=== PATIENT | female | born 1955 | race Caucasian/White ===

== ENCOUNTER 2017-04-05 16:29 | Inpatient (IN) | payer OTHER ==
[~2017-04-05] VITALS: Ht 167.6 cm; Wt 116.5 kg
[~2017-04-05 16:29] MED LIST: ATARAX,VISTARIL25 MG PO; ERGOCALCIF50000 UNIT PO; LISINOPRIL10 MG PO; MAGNESIUM OXID500 MG PO; OMEPRAZOLE40 M1 PO; PREDNISONE10 MG PO; SYNTHROID100 MCG PO; VENTOLIN HFA18 GM IH; VITAMIN B-123000 MCG SL
[2017-04-05 18:21] LABS: HEMATOCRIT 34.9 % (36.0-46.0); HEMOGLOBIN 11.2 G/DL (11.9-15.5); MCH 29.5 PG (29.0-34.0); MCHC 32.1 G/DL (30.0-36.0); MCV 91.8 FL (83-99); PLATELET COUNT 253 K/uL (156-360); RBC DIS.WIDTH-CV 16.3 % (11.8-14.6); RBC DIS.WIDTH-SD 54.6 % (39-53); WHITE BLOOD COUNT 14.1 K/uL (4.1-10.2)
[2017-04-05 18:29] LABS: CHLORIDE 104 mEq/L (99-109); POTASSIUM 5.2 mEq/L (3.7-5.4); SODIUM 141 mEq/L (136-147)
[2017-04-05 18:30] LABS: ALBUMIN 3.4 g/dL (3.2-4.8); MAGNESIUM 1.8 mg/dL (1.3-2.7)
[2017-04-05 18:32] LABS: GLUCOSE 109 mg/dL (70-99); TOTAL PROTEIN 6.5 g/dL (6.4-8.3)
[2017-04-05 18:34] LABS: TOTAL BILIRUBIN 0.8 mg/dL (0.0-1.0)
[2017-04-05 18:35] LABS: ALKALINE PHOSPHATASE 60 IU/L (3-129); SERUM ETHYL ALCOHOL < 10 mg/dL
[2017-04-05 18:36] LABS: CREATININE 1.8 mg/dL (0.6-1.3); GFR ESTIMATE (CALCULATED) 30 mL/min/
[2017-04-05 18:37] LABS: AST (GOT) 17 IU/L (2-34); UREA NITROGEN (BUN) 37 mg/dL (9-23)
[2017-04-05 18:39] LABS: ALT (GPT) 28 IU/L (3-49); CREATINE KINASE 205 IU/L (1-294)
[2017-04-05] MEDS ORDERED: BACLOFEN10 MG PO (18:47)
[2017-04-05] MEDS ORDERED: MECLIZINE HCL25 MG PO (18:47)
[2017-04-05] MEDS ORDERED: PRESERVISION A1 EAC2 PO (18:47)
[2017-04-05] MEDS ORDERED: K-DUR20 MEQ PO (18:47)
[2017-04-05 18:48] LABS: APPEARANCE SL.HAZY ((CLEAR)); BILIRUBIN NEGATIVE; BLOOD NEGATIVE; COLOR YELLOW ((YELLOW)); GLUCOSE (STRIP) NEGATIVE; KETONES 5; LEUKOCYTES TRACE; NITRITE NEGATIVE; PROTEIN (STRIP) 30; SPECIFIC GRAVITY 1.023 (1.000-1.030)
[2017-04-05] MEDS ORDERED: FUROSEMIDE20 MG PO (18:48)
[2017-04-05 18:59] LABS: BACTERIA RARE /HPF; EPITHELIAL CELLS 1+ /HPF; HYALINE CASTS 30-40 /LPF; MUCUS TRACE /LPF; RED BLOOD CELLS 0-5 /HPF (0-5); WHITE BLOOD CELLS 0-5 /HPF (0-5)
[2017-04-05 19:12] LABS: AMPHETAMINE NEGATIVE (500 ng/mL); BARBITURATES NEGATIVE (200 ng/mL); BENZODIAZEPINES NEGATIVE (150 ng/mL); BUPRENORPHINE NEGATIVE (10 ng/mL); COCAINE NEGATIVE (150 ng/mL); METHADONE NEGATIVE (200 ng/mL); METHAMPHETAMINE NEGATIVE (500 ng/mL); OPIATES (MORPHINE) NEGATIVE (100 ng/mL); OXYCODONE NEGATIVE (100 ng/mL); PHENCYCLIDINE NEGATIVE (25 ng/mL); PROPOXYPHENE NEGATIVE (300 ng/mL); THC CANNABINOIDS PRESUMPTIVE POSITIVE (50 ng/mL); TRICYCLIC ANTIDEPRESSANTS NEGATIVE (300 ng/mL)
[2017-04-06 00:47] LABS: BASE EXCESS -0.4 mEq/L (-3 to +3); BICARBONATE 24.8 mEq/L (22-26); CARBOXY HGB 2.9 % (0-5); COMMENTS - BLOOD GASES C+A+; DEVICE NC; METHEMOGLOBIN 1.1 % (0-1.5); O2 FLOW 4 L/MIN; PCO2 42 mm Hg (35-45); PO2 85 mm Hg (80-100); SITE RR; pH 7.38 (7.35-7.45)
[2017-04-06 08:04] LABS: FOLIC ACID (FOLATE) 15.9 NG/ML (5.0-22.0)
[2017-04-06 14:49] VITALS: BP 119/64
[2017-04-06 16:44] VITALS: BP 127/79
[2017-04-06 19:49] VITALS: BP 96/62
[2017-04-06 23:08] VITALS: BP 101/59
[2017-04-07 04:54] VITALS: BP 118/63
[2017-04-07 06:00] LABS: CHLORIDE 108 MEQ/L (99-109); SODIUM 141 MEQ/L (136-147); UREA NITROGEN (BUN) 27 mg/dL (9-23)
[2017-04-07 06:10] LABS: CREATININE 1.2 MG/DL (0.6-1.3); GFR ESTIMATE (CALCULATED) 49 mL/min/; GLUCOSE 210 mg/dL (70-99); POTASSIUM 3.9 MEQ/L (3.7-5.4)
[2017-04-07 07:09] LABS: HEMATOCRIT 31.7 % (36.0-46.0); HEMOGLOBIN 10.1 G/DL (11.9-15.5); MCH 29.4 PG (29.0-34.0); MCHC 31.9 G/DL (30.0-36.0); MCV 92.2 FL (83-99); PLATELET COUNT 249 K/uL (156-360); RBC DIS.WIDTH-CV 15.8 % (11.8-14.6); RBC DIS.WIDTH-SD 53.4 % (39-53); RED BLOOD COUNT 3.44 M/uL (3.80-5.20); WHITE BLOOD COUNT 16.9 K/uL (4.1-10.2)
[2017-04-07 08:02] VITALS: BP 133/74
[2017-04-07 13:04] VITALS: BP 135/67
[2017-04-07 16:07] VITALS: BP 158/81
[2017-04-07 19:22] VITALS: BP 138/74
[2017-04-07 23:16] VITALS: BP 147/77
[2017-04-08 03:16] VITALS: BP 144/83
[2017-04-08 06:33] LABS: CHLORIDE 106 MEQ/L (99-109); CREATININE 1.6 MG/DL (0.6-1.3); GFR ESTIMATE (CALCULATED) 35 mL/min/; GLUCOSE 115 mg/dL (70-99); SODIUM 142 MEQ/L (136-147); UREA NITROGEN (BUN) 28 mg/dL (9-23)
[2017-04-08 08:34] VITALS: BP 167/88
[2017-04-08 11:26] VITALS: BP 145/81
[2017-04-08 16:05] VITALS: BP 151/82
[2017-04-08 19:58] VITALS: BP 165/77
[2017-04-08 23:44] VITALS: BP 158/88
[2017-04-09 05:18] VITALS: BP 136/92
[2017-04-09 07:10] LABS: CHLORIDE 106 MEQ/L (99-109); CREATININE 1.4 MG/DL (0.6-1.3); GFR ESTIMATE (CALCULATED) 41 mL/min/; SODIUM 142 MEQ/L (136-147); UREA NITROGEN (BUN) 30 mg/dL (9-23)
[2017-04-09 07:18] LABS: GLUCOSE 84 mg/dL (70-99)
[2017-04-09 08:00] VITALS: BP 135/70
[2017-04-09 12:08] VITALS: BP 121/67
[2017-04-09 15:54] VITALS: BP 126/68
[2017-04-09 20:02] VITALS: BP 133/80
[2017-04-09 22:57] VITALS: BP 132/76
[2017-04-10 05:32] VITALS: BP 125/79
[2017-04-10 07:59] LABS: BASOPHIL (%) 0.3 % (0-1); EOSINOPHIL (%) 2.2 % (0-5); EOSINOPHIL COUNT 0.2 K/uL (0-0.3); HEMOGLOBIN 9.7 G/DL (11.9-15.5); IMMATURE GRANULOCYTE (%) 2.3 % (0.0-0.7); LYMPHOCYTE (%) 22.3 % (15-42); LYMPHOCYTE COUNT 2.3 K/uL (1.0-2.8); MCHC 31.3 G/DL (30.0-36.0); MCV 92.5 FL (83-99); MONOCYTE (%) 8.9 % (3-12); MONOCYTE COUNT 0.9 K/uL (0-0.8); NEUTROPHIL COUNT 6.6 K/uL (1.8-6.4); NRBC (%) 0.2 /100 WBC (0-0); PLATELET COUNT 235 K/uL (156-360); RBC DIS.WIDTH-CV 15.9 % (11.8-14.6); RED BLOOD COUNT 3.35 M/uL (3.80-5.20); WHITE BLOOD COUNT 10.3 K/uL (4.1-10.2)
[2017-04-10 08:10] VITALS: BP 122/69
[2017-04-10 08:37] LABS: CHLORIDE 105 MEQ/L (99-109); GFR ESTIMATE (CALCULATED) > 59 mL/min/; GLUCOSE 75 mg/dL (70-99); SODIUM 139 MEQ/L (136-147); UREA NITROGEN (BUN) 24 mg/dL (9-23)
[2017-04-10 12:21] VITALS: BP 117/57
[2017-04-10 16:09] VITALS: BP 128/81
[2017-04-10 19:46] VITALS: BP 127/60
[2017-04-10 23:46] VITALS: BP 111/60
[2017-04-11 03:51] VITALS: BP 118/61
[2017-04-11 05:33] LABS: BASOPHIL (%) 0.1 % (0-1); EOSINOPHIL (%) 2.7 % (0-5); EOSINOPHIL COUNT 0.3 K/uL (0-0.3); HEMATOCRIT 31.1 % (36.0-46.0); HEMOGLOBIN 9.9 G/DL (11.9-15.5); IMMATURE GRANULOCYTE (%) 2.4 % (0.0-0.7); LYMPHOCYTE (%) 17.2 % (15-42); LYMPHOCYTE COUNT 1.8 K/uL (1.0-2.8); MCH 29.5 PG (29.0-34.0); MCHC 31.8 G/DL (30.0-36.0); MCV 92.6 FL (83-99); MONOCYTE (%) 6.8 % (3-12); MONOCYTE COUNT 0.7 K/uL (0-0.8); NEUTROPHIL (%) 70.8 % (45-76); NEUTROPHIL COUNT 7.5 K/uL (1.8-6.4); NRBC (%) 0.2 /100 WBC (0-0); PLATELET COUNT 223 K/uL (156-360); RBC DIS.WIDTH-CV 16.1 % (11.8-14.6); RBC DIS.WIDTH-SD 54.1 % (39-53); RED BLOOD COUNT 3.36 M/uL (3.80-5.20); WHITE BLOOD COUNT 10.5 K/uL (4.1-10.2)
[2017-04-11 06:08] LABS: CHLORIDE 100 MEQ/L (99-109); CREATININE 1.2 MG/DL (0.6-1.3); GFR ESTIMATE (CALCULATED) 49 mL/min/; POTASSIUM 4.1 MEQ/L (3.7-5.4); SODIUM 135 MEQ/L (136-147); UREA NITROGEN (BUN) 18 mg/dL (9-23)
[2017-04-11 06:10] LABS: GLUCOSE 100 mg/dL (70-99)
[2017-04-11 07:30] LABS: POTASSIUM 3.8 MEQ/L (3.7-5.4)
[2017-04-11 08:21] VITALS: BP 114/58
[2017-04-11 12:01] VITALS: BP 118/55
[2017-04-11] MEDS ORDERED: NICOTINE PATCH1 EAC1 TD (13:39)
[2017-04-11] MEDS ORDERED: NYSTATIN15 GM TP (13:49)
[2017-04-11] MEDS ORDERED: ATROVENT 00.5 MG/2.5 AEROSOL (13:52)
[2017-04-11] MEDS ORDERED: ENDOCET 5-3251 EACH PO (13:54)
[2017-04-11 16:48] VITALS: BP 113/59
[2017-04-11 18:25] VITALS: BP 125/75
== END 2017-04-11 19:10 | DRG 183 ==
LOC: EME 16:29 → EDOF 23:20 → 3EAST 23:20 → ENRESERV 23:23 → 3EAST 04-06 13:44
PROVIDERS: Emergency Medicine; Hospitalist; Internal Medicine; Student in an Organized Health Care Education/Training Program
PROC: 5A09357 Assistance with Respiratory Ventilation, Less than 24 Consecutive Hours, Continuous Positive Airway Pressure (ICD-10-PCS; principal; 2017-04-06)
DX: S22.43XA Multiple fractures of ribs, bilateral, initial encounter for closed fracture (principal); J44.1 Chronic obstructive pulmonary disease with (acute) exacerbation; J96.01 Acute respiratory failure with hypoxia; N17.9 Acute kidney failure, unspecified; S40.012A Contusion of left shoulder, initial encounter; W19.XXXA Unspecified fall, initial encounter; Y92.009 Unspecified place in unspecified non-institutional (private) residence as the place of occurrence of the external cause; I12.9 Hypertensive chronic kidney disease with stage 1 through stage 4 chronic kidney disease, or unspecified chronic kidney disease; N18.3 Chronic kidney disease, stage 3 (moderate); E11.22 Type 2 diabetes mellitus with diabetic chronic kidney disease; N39.0 Urinary tract infection, site not specified; R62.7 Adult failure to thrive; E66.9 Obesity, unspecified; Z68.41 Body mass index [BMI] 40.0-44.9, adult; G47.33 Obstructive sleep apnea (adult) (pediatric); R00.0 Tachycardia, unspecified; M48.56XA Collapsed vertebra, not elsewhere classified, lumbar region, initial encounter for fracture; M48.54XA Collapsed vertebra, not elsewhere classified, thoracic region, initial encounter for fracture; R29.6 Repeated falls; R40.0 Somnolence; R44.2 Other hallucinations; T42.8X1A Poisoning by antiparkinsonism drugs and other central muscle-tone depressants, accidental (unintentional), initial encounter; T40.7X1A Poisoning by cannabis (derivatives), accidental (unintentional), initial encounter; M19.012 Primary osteoarthritis, left shoulder; M54.12 Radiculopathy, cervical region; E03.9 Hypothyroidism, unspecified; M35.3 Polymyalgia rheumatica; J98.11 Atelectasis; F17.210 Nicotine dependence, cigarettes, uncomplicated; K21.9 Gastro-esophageal reflux disease without esophagitis; F12.10 Cannabis abuse, uncomplicated; D72.829 Elevated white blood cell count, unspecified; T38.0X5A Adverse effect of glucocorticoids and synthetic analogues, initial encounter; Z75.1 Person awaiting admission to adequate facility elsewhere; Z82.49 Family history of ischemic heart disease and other diseases of the circulatory system; Z99.81 Dependence on supplemental oxygen
CPT/HCPCS: 36600; 70450; 71046; 71250; 72125; 73030; 74176; 80048; 80053; 81003; 82306; 82550; 82607; 82746; 82803; 82948; 83605; 83735; 84443; 84999; 85025; 85027; 93005; 94640; 94640 76; 94660; 94760; 94799; 97530 GP; 99202; 99281; 99285; G0480; J0456; J0696; J1644; J1815; J2270; J2920; J7030; J7040; S0028

== ENCOUNTER 2017-10-15 17:09 | Inpatient (IN) | payer OTHER ==
[~2017-10-15] VITALS: Ht 167.6 cm; Wt 113.6 kg
[~2017-10-15 17:09] MED LIST changes: +ATROVENT 00.5 MG/2.5 AEROSOL; +BACLOFEN10 MG PO; +ENDOCET 5-3251 EACH PO; +FUROSEMIDE40 MG PO; +K-DUR20 MEQ PO; +MECLIZINE HCL25 MG PO; +NICOTINE PATCH1 EAC1 TD; +NYSTATIN15 GM TP; +PRESERVISION A1 EAC2 PO
[2017-10-15 18:28] LABS: HEMATOCRIT 35.1 % (36.0-46.0); HEMOGLOBIN 11.4 G/DL (11.9-15.5); MCH 28.6 PG (29.0-34.0); MCHC 32.5 G/DL (30.0-36.0); PLATELET COUNT 315 K/uL (156-360); RBC DIS.WIDTH-CV 17.9 % (11.8-14.6); RBC DIS.WIDTH-SD 57.3 % (39-53); RED BLOOD COUNT 3.99 M/uL (3.80-5.20); WHITE BLOOD COUNT 14.6 K/uL (4.1-10.2)
[2017-10-15 18:38] LABS: CHLORIDE 103 mEq/L (99-109); POTASSIUM 3.9 mEq/L (3.7-5.4); SODIUM 144 mEq/L (136-147)
[2017-10-15 18:39] LABS: GLUCOSE 115 mg/dL (70-99)
[2017-10-15 18:43] LABS: CREATININE 1.2 mg/dL (0.6-1.3); GFR ESTIMATE (CALCULATED) 48 mL/min/
[2017-10-15 18:44] LABS: UREA NITROGEN (BUN) 22 mg/dL (9-23)
[2017-10-15 18:50] LABS: TROP-I INTERPRETATION NEGATIVE; TROPONIN-I 0.02 ng/mL (0.0-0.30)
[2017-10-15 19:30] LABS: COMMENTS - BLOOD GASES C+; O2 FLOW 2 L/MIN; SITE LR
[2017-10-15 19:31] LABS: CARBOXY HGB 1.8 % (0-5); DEVICE NC; PCO2 47 mm Hg (35-45); PO2 103 mm Hg (80-100); TOTAL RESP RATE 19 resp/min; pH 7.42 (7.35-7.45)
[2017-10-15 19:32] LABS: BICARBONATE 30.5 mEq/L (22-26)
[2017-10-15 19:34] LABS: BASE EXCESS 5.1 mEq/L (-3 to +3)
[2017-10-15 20:49] LABS: INTER. NORMALIZED RATIO 1.1
[2017-10-15] MEDS ORDERED: VENTOLIN HFA18 GM IH (23:16)
[2017-10-15] MEDS ORDERED: BACLOFEN10 MG PO ×2 (23:17)
[2017-10-15] MEDS ORDERED: HYDROCORTISONE30 G2 TP (23:17)
[2017-10-15] MEDS ORDERED: OXYCODONE HCL10 MG PO (23:17)
[2017-10-15] MEDS ORDERED: PREDNISONE10 MG PO (23:18)
[2017-10-16 01:24] LABS: TROP-I INTERPRETATION NEGATIVE; TROPONIN-I 0.02 ng/mL (0.0-0.30)
[2017-10-16 01:40] VITALS: BP 137/83
[2017-10-16 05:08] VITALS: BP 134/81
[2017-10-16 05:45] LABS: MCH 27.4 PG (29.0-34.0); MCHC 30.6 G/DL (30.0-36.0); MCV 89.8 FL (83-99); PLATELET COUNT 323 K/uL (156-360); RBC DIS.WIDTH-SD 59.3 % (39-53); RED BLOOD COUNT 4.01 M/uL (3.80-5.20); WHITE BLOOD COUNT 12.1 K/uL (4.1-10.2)
[2017-10-16 05:59] LABS: TROP-I INTERPRETATION NEGATIVE; TROPONIN-I 0.02 ng/mL (0.0-0.30)
[2017-10-16 07:10] VITALS: BP 114/82
[2017-10-16 09:56] LABS: ALBUMIN 3.6 g/dL (3.2-4.8); CHLORIDE 98 mEq/L (99-109); POTASSIUM 4.3 mEq/L (3.7-5.4); SODIUM 143 mEq/L (136-147)
[2017-10-16 09:59] LABS: GLUCOSE 160 mg/dL (70-99); TOTAL PROTEIN 6.7 g/dL (6.4-8.3)
[2017-10-16 10:01] LABS: TOTAL BILIRUBIN 0.8 mg/dL (0.0-1.0)
[2017-10-16 10:02] LABS: ALKALINE PHOSPHATASE 114 IU/L (3-129); CREATININE 1.3 mg/dL (0.6-1.3); GFR ESTIMATE (CALCULATED) 44 mL/min/
[2017-10-16 10:03] LABS: UREA NITROGEN (BUN) 23 mg/dL (9-23)
[2017-10-16 10:04] LABS: AST (GOT) 25 IU/L (2-34)
[2017-10-16 10:05] LABS: ALT (GPT) 45 IU/L (3-49)
[2017-10-16 15:35] VITALS: BP 144/77
[2017-10-16 16:28] LABS: APPEARANCE CLEAR ((CLEAR)); BILIRUBIN NEGATIVE; BLOOD NEGATIVE; COLOR STRAW ((YELLOW)); GLUCOSE (STRIP) NEGATIVE; KETONES NEGATIVE; LEUKOCYTES NEGATIVE; NITRITE NEGATIVE; PROTEIN (STRIP) NEGATIVE; SPECIFIC GRAVITY 1.011 (1.000-1.030); UCUL ADDED? NO; UROBILINOGEN 0.2 MG/DL (0.2-1.0)
[2017-10-16 20:00] VITALS: BP 140/84
[2017-10-16 21:15] VITALS: BP 132/64
[2017-10-17] VITALS (7 sets, daily range): BP systolic 118–137; BP diastolic 58–76
[2017-10-18 04:51] VITALS: BP 127/60
[2017-10-18 06:02] LABS: BASOPHIL (%) 0.1 % (0-1); EOSINOPHIL (%) 0 % (0-5); HEMATOCRIT 31.3 % (36.0-46.0); HEMOGLOBIN 9.8 G/DL (11.9-15.5); IMMATURE GRANULOCYTE (%) 0.9 % (0.0-0.7); LYMPHOCYTE (%) 4.3 % (15-42); LYMPHOCYTE COUNT 0.6 K/uL (1.0-2.8); MCH 27.8 PG (29.0-34.0); MCHC 31.3 G/DL (30.0-36.0); MCV 88.9 FL (83-99); MONOCYTE (%) 3.9 % (3-12); MONOCYTE COUNT 0.5 K/uL (0-0.8); NEUTROPHIL (%) 90.8 % (45-76); NEUTROPHIL COUNT 12.5 K/uL (1.8-6.4); PLATELET COUNT 297 K/uL (156-360); RBC DIS.WIDTH-SD 58.7 % (39-53); RED BLOOD COUNT 3.52 M/uL (3.80-5.20); WHITE BLOOD COUNT 13.8 K/uL (4.1-10.2)
[2017-10-18 06:25] LABS: ALBUMIN 2.8 G/DL (3.2-4.8); ALKALINE PHOSPHATASE 88 IU/L (3-129); ALT (GPT) 36 IU/L (3-49); AST (GOT) 19 IU/L (2-34); CHLORIDE 98 MEQ/L (99-109); CREATININE 1.3 MG/DL (0.6-1.3); GFR ESTIMATE (CALCULATED) 44 mL/min/; GLUCOSE 213 mg/dL (70-99); POTASSIUM 4.3 MEQ/L (3.7-5.4); SODIUM 139 MEQ/L (136-147); TOTAL BILIRUBIN 0.3 MG/DL (0.0-1.0); TOTAL PROTEIN 5.6 G/DL (6.4-8.3); UREA NITROGEN (BUN) 31 mg/dL (9-23)
[2017-10-18 07:44] VITALS: BP 119/63
[2017-10-18 12:25] VITALS: BP 135/59
[2017-10-18 16:38] VITALS: BP 109/57
[2017-10-18 20:00] VITALS: BP 109/53
[2017-10-18 21:09] VITALS: BP 118/56
[2017-10-19] VITALS (9 sets, daily range): BP systolic 110–159; BP diastolic 58–99
[2017-10-19 05:17] LABS: BASOPHIL (%) 0.2 % (0-1); EOSINOPHIL (%) 0.7 % (0-5); EOSINOPHIL COUNT 0.1 K/uL (0-0.3); HEMATOCRIT 31.8 % (36.0-46.0); HEMOGLOBIN 10.1 G/DL (11.9-15.5); IMMATURE GRANULOCYTE (%) 1.3 % (0.0-0.7); LYMPHOCYTE (%) 7.2 % (15-42); LYMPHOCYTE COUNT 0.8 K/uL (1.0-2.8); MCH 28.1 PG (29.0-34.0); MCHC 31.8 G/DL (30.0-36.0); MCV 88.3 FL (83-99); MONOCYTE (%) 5.6 % (3-12); MONOCYTE COUNT 0.6 K/uL (0-0.8); NEUTROPHIL COUNT 9.7 K/uL (1.8-6.4); PLATELET COUNT 303 K/uL (156-360); RBC DIS.WIDTH-CV 18.3 % (11.8-14.6); RBC DIS.WIDTH-SD 59.6 % (39-53); WHITE BLOOD COUNT 11.4 K/uL (4.1-10.2)
[2017-10-19 06:07] LABS: ALBUMIN 2.9 G/DL (3.2-4.8); ALKALINE PHOSPHATASE 82 IU/L (3-129); ALT (GPT) 54 IU/L (3-49); CHLORIDE 99 MEQ/L (99-109); GFR ESTIMATE (CALCULATED) > 59 mL/min/; GLUCOSE 223 mg/dL (70-99); SODIUM 140 MEQ/L (136-147); TOTAL PROTEIN 5.6 G/DL (6.4-8.3); UREA NITROGEN (BUN) 28 mg/dL (9-23)
[2017-10-19 06:13] LABS: AST (GOT) 33 IU/L (2-34); TOTAL BILIRUBIN 0.2 MG/DL (0.0-1.0)
[2017-10-20 03:45] VITALS: BP 130/64
[2017-10-20 05:51] LABS: BASOPHIL (%) 0.2 % (0-1); EOSINOPHIL (%) 0 % (0-5); HEMATOCRIT 35.4 % (36.0-46.0); LYMPHOCYTE (%) 6.3 % (15-42); LYMPHOCYTE COUNT 0.8 K/uL (1.0-2.8); MCH 27.3 PG (29.0-34.0); MCHC 31.1 G/DL (30.0-36.0); MCV 87.8 FL (83-99); MONOCYTE (%) 4.4 % (3-12); MONOCYTE COUNT 0.6 K/uL (0-0.8); NEUTROPHIL (%) 87.1 % (45-76); PLATELET COUNT 321 K/uL (156-360); RBC DIS.WIDTH-CV 17.9 % (11.8-14.6); RBC DIS.WIDTH-SD 58.2 % (39-53); RED BLOOD COUNT 4.03 M/uL (3.80-5.20); WHITE BLOOD COUNT 12.6 K/uL (4.1-10.2)
[2017-10-20 06:12] LABS: CHLORIDE 96 MEQ/L (99-109); CREATININE 1.1 MG/DL (0.6-1.3); GFR ESTIMATE (CALCULATED) 53 mL/min/; GLUCOSE 284 mg/dL (70-99); POTASSIUM 4.7 MEQ/L (3.7-5.4); SODIUM 138 MEQ/L (136-147); UREA NITROGEN (BUN) 35 mg/dL (9-23); VANCOMYCIN, TROUGH 19.2 MCG/ML (10-20)
[2017-10-20 08:09] VITALS: BP 128/62
[2017-10-20 11:09] VITALS: BP 114/53
[2017-10-20 17:51] VITALS: BP 132/62
[2017-10-20 19:28] VITALS: BP 108/63
[2017-10-20 21:23] VITALS: BP 125/64
[2017-10-21] VITALS (7 sets, daily range): BP systolic 103–118; BP diastolic 53–69
[2017-10-21 06:51] LABS: BASOPHIL (%) 0.3 % (0-1); BASOPHIL COUNT 0.1 K/uL (0-0.1); EOSINOPHIL (%) 0.1 % (0-5); HEMATOCRIT 34.6 % (36.0-46.0); HEMOGLOBIN 10.7 G/DL (11.9-15.5); IMMATURE GRANULOCYTE (%) 2.9 % (0.0-0.7); LYMPHOCYTE COUNT 1.1 K/uL (1.0-2.8); MCH 27.4 PG (29.0-34.0); MCHC 30.9 G/DL (30.0-36.0); MCV 88.7 FL (83-99); MONOCYTE (%) 5.4 % (3-12); MONOCYTE COUNT 0.8 K/uL (0-0.8); NEUTROPHIL (%) 83.3 % (45-76); NEUTROPHIL COUNT 11.9 K/uL (1.8-6.4); NRBC (%) 0.1 /100 WBC (0-0); PLATELET COUNT 314 K/uL (156-360); RBC DIS.WIDTH-SD 58.3 % (39-53); WHITE BLOOD COUNT 14.3 K/uL (4.1-10.2)
[2017-10-21 07:15] LABS: CHLORIDE 96 MEQ/L (99-109); CREATININE 1.2 MG/DL (0.6-1.3); GFR ESTIMATE (CALCULATED) 48 mL/min/; GLUCOSE 241 mg/dL (70-99); POTASSIUM 5.3 MEQ/L (3.7-5.4); SODIUM 139 MEQ/L (136-147); UREA NITROGEN (BUN) 32 mg/dL (9-23)
[2017-10-22 06:31] LABS: BASOPHIL (%) 0.4 % (0-1); BASOPHIL COUNT 0.1 K/uL (0-0.1); EOSINOPHIL (%) 0.2 % (0-5); HEMATOCRIT 36.8 % (36.0-46.0); HEMOGLOBIN 11.6 G/DL (11.9-15.5); LYMPHOCYTE COUNT 1.6 K/uL (1.0-2.8); MCH 27.8 PG (29.0-34.0); MCHC 31.5 G/DL (30.0-36.0); MONOCYTE (%) 5.1 % (3-12); MONOCYTE COUNT 0.7 K/uL (0-0.8); NEUTROPHIL (%) 80.3 % (45-76); NEUTROPHIL COUNT 11.4 K/uL (1.8-6.4); PLATELET COUNT 325 K/uL (156-360); RBC DIS.WIDTH-SD 57.8 % (39-53); RED BLOOD COUNT 4.18 M/uL (3.80-5.20); WHITE BLOOD COUNT 14.2 K/uL (4.1-10.2)
[2017-10-22 06:52] LABS: CHLORIDE 95 MEQ/L (99-109); CREATININE 1.1 MG/DL (0.6-1.3); GFR ESTIMATE (CALCULATED) 53 mL/min/; GLUCOSE 173 mg/dL (70-99); SODIUM 137 MEQ/L (136-147); UREA NITROGEN (BUN) 36 mg/dL (9-23)
[2017-10-22 07:03] LABS: POTASSIUM 4.1 MEQ/L (3.7-5.4)
[2017-10-22 08:07] VITALS: BP 110/62
[2017-10-22 12:02] VITALS: BP 143/90
[2017-10-22 12:07] VITALS: BP 99/62
[2017-10-22 16:12] VITALS: BP 118/70
[2017-10-22 18:55] VITALS: BP 99/54
[2017-10-22 23:10] VITALS: BP 118/56
[2017-10-23 04:15] VITALS: BP 122/60
[2017-10-23 06:08] LABS: BASOPHIL (%) 0.3 % (0-1); EOSINOPHIL (%) 0.4 % (0-5); EOSINOPHIL COUNT 0.1 K/uL (0-0.3); HEMATOCRIT 34.4 % (36.0-46.0); IMMATURE GRANULOCYTE (%) 3.2 % (0.0-0.7); LYMPHOCYTE COUNT 1.3 K/uL (1.0-2.8); MCH 27.9 PG (29.0-34.0); MCV 87.3 FL (83-99); MONOCYTE (%) 5.5 % (3-12); MONOCYTE COUNT 0.8 K/uL (0-0.8); NEUTROPHIL (%) 81.6 % (45-76); NEUTROPHIL COUNT 11.4 K/uL (1.8-6.4); PLATELET COUNT 293 K/uL (156-360); RBC DIS.WIDTH-CV 18.3 % (11.8-14.6); RBC DIS.WIDTH-SD 58.3 % (39-53); RED BLOOD COUNT 3.94 M/uL (3.80-5.20)
[2017-10-23 06:45] LABS: CHLORIDE 97 MEQ/L (99-109); GFR ESTIMATE (CALCULATED) > 59 mL/min/; GLUCOSE 188 mg/dL (70-99); POTASSIUM 4.3 MEQ/L (3.7-5.4); SODIUM 139 MEQ/L (136-147); UREA NITROGEN (BUN) 42 mg/dL (9-23)
[2017-10-23 08:25] VITALS: BP 112/56
[2017-10-23] MEDS ORDERED: LOPRESSOR25 MG PO (12:50)
[2017-10-23] MEDS ORDERED: BENADRYL25 MG PO (12:50)
[2017-10-23] MEDS ORDERED: CLINDAMYCIN HC300 MG PO (13:09)
== END 2017-10-23 14:29 | DRG 315 ==
LOC: EME 17:09 → 4EAST 23:37 → EDOF 23:37 → ENRESERV 23:38 → 4EAST 10-16 01:24 → ENRESERV 10-20 19:56 → 2EAST 10-20 21:11
PROVIDERS: Emergency Medicine; Hospitalist; Internal Medicine; Student in an Organized Health Care Education/Training Program
PROC: 5A09357 Assistance with Respiratory Ventilation, Less than 24 Consecutive Hours, Continuous Positive Airway Pressure (ICD-10-PCS; principal; 2017-10-15)
DX: R09.89 Other specified symptoms and signs involving the circulatory and respiratory systems (principal); L03.115 Cellulitis of right lower limb; L03.116 Cellulitis of left lower limb; I87.2 Venous insufficiency (chronic) (peripheral); L97.829 Non-pressure chronic ulcer of other part of left lower leg with unspecified severity; I89.0 Lymphedema, not elsewhere classified; L27.0 Generalized skin eruption due to drugs and medicaments taken internally; T36.4X5A Adverse effect of tetracyclines, initial encounter; I11.0 Hypertensive heart disease with heart failure; I50.9 Heart failure, unspecified; J44.1 Chronic obstructive pulmonary disease with (acute) exacerbation; R06.03 Acute respiratory distress; J98.11 Atelectasis; M35.3 Polymyalgia rheumatica; K21.9 Gastro-esophageal reflux disease without esophagitis; E03.9 Hypothyroidism, unspecified; E66.01 Morbid (severe) obesity due to excess calories; I45.10 Unspecified right bundle-branch block; H35.30 Unspecified macular degeneration; G47.33 Obstructive sleep apnea (adult) (pediatric); D64.9 Anemia, unspecified; R32 Unspecified urinary incontinence; L22 Diaper dermatitis; K59.00 Constipation, unspecified; F17.210 Nicotine dependence, cigarettes, uncomplicated; Z79.52 Long term (current) use of systemic steroids; Z68.39 Body mass index [BMI] 39.0-39.9, adult; Z22.322 Carrier or suspected carrier of Methicillin resistant Staphylococcus aureus
CPT/HCPCS: 36600; 71045; 71046; 71275; 80048; 80053; 80202; 81003; 83605; 83880; 84484; 85025; 85027; 85610; 85730; 87040; 87641; 93005; 93306; 93970; 94640; 94669; 94799; 97530 GO; 97530 GP; 99281; 99285; J1644; J1940; J2270; J2543; J2920; J3010; J3370; J7050; J7512